=== PATIENT | female | born 1995 | race Caucasian/White ===

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

== ENCOUNTER 2017-06-09 11:10 | Emergency (ER) | payer OTHER ==
[~2017-06-09] VITALS: Ht 157.5 cm; Wt 60.5 kg
[~2017-06-09 11:10] MED LIST: AZITTAB PO; FLUT0.15
[2017-06-09 11:14] VITALS: TEMP 36.7; Ht 157.5 cm; Wt 60.5 kg
[2017-06-09] MEDS ORDERED: RANITIDINE HCL 50 MG/100 ML D5W IV STA (11:28)
[2017-06-09] MEDS ORDERED: DiphenhydrAMINE HCL 50 MG/ML VIAL IV STA (11:28)
[2017-06-09] MEDS ORDERED: METHYLPREDNISOLONE 125 MG VIAL IM STA (11:28)
[2017-06-09 11:47] LABS: BASO % 0.2 %; BASO ABS # 0.01 K/uL (0-0.2); EOS % 4.8 %; EOS ABS # 0.23 K/uL (0-0.5); HEMATOCRIT 40.3 % (37-47); HEMOGLOBIN 13.7 g/dL (12.0-16.0); IG# 0.01 K/uL (0.00-0.02); LYMPH % 32.6 %; LYMPH ABS # 1.56 K/uL (1.2-3.4); MEAN CELL VOLUME 90.8 fL (80-100); MEAN CORPUSCULAR HEMOGLOBIN 30.9 pg (25-34); MEAN PLATELET VOLUME 9.8 fL (7.4-10.4); MONO % 7.7 %; MONO ABS # 0.37 K/uL (0.11-0.59); NEUT % 54.5 %; NEUT ABS # 2.61 K/uL (1.4-6.5); PLATELET COUNT 249 K/uL (130-400); RED CELL DISTRIBUTION WIDTH CV 12.6 % (11.5-14.5); RED CELL DISTRIBUTION WIDTH SD 41.8 fL (36.4-46.3); WHITE BLOOD COUNT 4.79 K/uL (4.8-10.8)
[2017-06-09 12:05] LABS: ALBUMIN 3.5 gm/dl (3.4-5.0); ALT/SGPT 16 U/L (12-78); AST/SGOT 10 U/L (15-37); BLOOD UREA NITROGEN 17 mg/dl (7-18); CALCIUM 9.2 mg/dl (8.5-10.1); CARBON DIOXIDE 26 mmol/L (21-32); GLUCOSE 93 mg/dl (70-99); LIPASE 166 U/L (73-393); SODIUM 142 mmol/L (136-145)
[2017-06-09 12:07] LABS: ALKALINE PHOSPHATASE 68 U/L (45-117); TOTAL PROTEIN 7.9 gm/dl (6.4-8.2)
[2017-06-09] MEDS ORDERED: FAMO20TA11 PO (12:10)
[2017-06-09] MEDS ORDERED: AZIT500T PO (12:27)
[2017-06-09] MEDS ORDERED: METH4PAK PO (12:27)
--- NOTE | 2017-06-09 12:28 | EMERGENCY ROOM VISIT NOTE ---
History First contact with patient: 11:15 Chief Complaint: RASH Stated Complaint: RASH/SORE THROAT History of Present Illness The patient is a 21 year old female who presents to the Emergency Room with complaints of rash over most of her body. The patient states that she started on Saturday with a sore throat and a rash on her hands and forearms. She then had a fever Saturday night so she went to [facility] on . She states that her rapid strep was negative but never heard about the culture. She also states that her mono was negative. They told her she had tonsillitis with tonsillar stones and placed her on Keflex. They also placed her on Benadryl and Pepcid for the rash. The patient states that there is a strong family history of allergies to penicillin, therefore the patient states that her mother never allowed physicians to give her penicillin. The patient denies any other symptoms of head congestion, cough. She states the sore throat is better and the fever has resolved. The patient states that the rash is itchy. She states it is now on her entire back chest abdomen upper arms and neck. She states the rash on her forearms has cleared. She still has a slight rash on her right hand. Review of Systems 10 system review was performed and was negative unless stated otherwise history of present illness. Past Medical/Surgical History Medical Problems: (1) GERD (gastroesophageal reflux disease) Surgical Problems: (1) No history of previous surgery Family History FH: cancer FH: diabetes mellitus FH: heart disease Social History Smoking Status: Never Smoker Alcohol Use: occasionally Marital Status: single Housing Status: lives with roommate Occupation Status: [employer] student Current/Historical Medications Scheduled Famotidine (Pepcid), 20 MG PO DAILY Physical Exam Vital Signs Date Time Temp Pulse Resp B/P (MAP) Pulse Ox O2 Delivery O2 Flow Rate FiO2 18 11:14 36.7 86 18 119/78 100 Room Air Physical Exam PHYSICAL EXAM: Vital Signs were reviewed: Reviewed Nurse's notes and agree. GENERAL: 22-year-old male appears in no acute distress. MENTAL STATUS: Alert, oriented, coherent. EARS: Canals clear. TMs good light reflex, no erythema or fluid level noted. NOSE: Nasal mucosa with minimal erythema engorgement. PHARYNX : No erythema, no edema noted. No exudate noted. Airway is adequate. NECK: Supple, non-tender. No lymphadenopathy noted. LUNGS: Clear to auscultation without wheezes rales or rhonchi. CARDIAC: Regular rate and rhythm without murmur. SKIN: Patient has a confluent erythematous macular/papular rash over her entire back, chest, abdomen, neck and upper arms. Medical Decision & Procedures Laboratory Results 06/09/17 11:35 Red Blood Count 4.44, Mean Corpuscular Volume 90.8, Mean Corpuscular Hemoglobin 30.9, Mean Corpuscular Hemoglobin Concent 34.0, Mean Platelet Volume 9.8, Neutrophils (%) (Auto) 54.5, Lymphocytes (%) (Auto) 32.6, Monocytes (%) (Auto) 7.7, Eosinophils (%) (Auto) 4.8, Basophils (%) (Auto) 0.2, Neutrophils # (Auto) 2.61, Lymphocytes # (Auto) 1.56, Monocytes # (Auto) 0.37, Eosinophils # (Auto) 0.23, Basophils # (Auto) 0.01 06/09/17 11:35 Test 06/09/17 11:35 White Blood Count 4.79 K/uL (4.8-10.8) Red Blood Count 4.44 M/uL (4.2-5.4) Hemoglobin 13.7 g/dL (12.0-16.0) Hematocrit 40.3 % (37-47) Mean Corpuscular Volume 90.8 fL (80-100) Mean Corpuscular Hemoglobin 30.9 pg (25-34) Mean Corpuscular Hemoglobin Concent 34.0 g/dl (32-36) Platelet Count 249 K/uL (130-400) Mean Platelet Volume 9.8 fL (7.4-10.4) Neutrophils (%) (Auto) 54.5 % Lymphocytes (%) (Auto) 32.6 % Monocytes (%) (Auto) 7.7 % Eosinophils (%) (Auto) 4.8 % Basophils (%) (Auto) 0.2 % Neutrophils # (Auto) 2.61 K/uL (1.4-6.5) Lymphocytes # (Auto) 1.56 K/uL (1.2-3.4) Monocytes # (Auto) 0.37 K/uL (0.11-0.59) Eosinophils # (Auto) 0.23 K/uL (0-0.5) Basophils # (Auto) 0.01 K/uL (0-0.2) RDW Standard Deviation 41.8 fL (36.4-46.3) RDW Coefficient of Variation 12.6 % (11.5-14.5) Immature Granulocyte % (Auto) 0.2 % Immature Granulocyte # (Auto) 0.01 K/uL (0.00-0.02) Anion Gap 5.0 mmol/L (3-11) Est Creatinine Clear Calc Drug Dose 96.9 ml/min Estimated GFR () 123.9 Estimated GFR (Non- 106.9 BUN/Creatinine Ratio 21.5 (10-20) Calcium Level 9.2 mg/dl (8.5-10.1) Total Bilirubin 0.3 mg/dl (0.2-1) Direct Bilirubin < 0.1 mg/dl (0-0.2) Aspartate Amino Transf (AST/SGOT) 10 U/L (15-37) Alanine Aminotransferase (ALT/SGPT) 16 U/L (12-78) Alkaline Phosphatase 68 U/L (45-117) Total Protein 7.9 gm/dl (6.4-8.2) Albumin 3.5 gm/dl (3.4-5.0) Lipase 166 U/L (73-393) Medications Administered Medications (Trade) Dose Ordered Sig/Jagdish Route Start Time Stop Time Status Last Admin Dose Admin Methylprednisolone Sodium Succinate (Solu-Medrol IV) 125 mg NOW STAT IM 06/09/17 11:28 06/09/17 11:30 DC 06/09/17 12:03 125 MG Diphenhydramine HCl (Benadryl Inj) 25 mg NOW STAT IV 06/09/17 11:28 06/09/17 11:30 DC 06/09/17 11:45 25 MG Ranitidine HCl (zANTac IV) 50 mg NOW STAT IV 06/09/17 11:28 06/09/17 11:30 DC 06/09/17 11:46 50 MG ED Course The patient was evaluated. IV access was obtained. CBC differential, renal profile, LFTs and lipase levels were ordered. The patient was given Zantac 50 mg IV, Solu-Medrol 125 mg IV and Benadryl 25 mg IV. Labs are reviewed and were unremarkable. Patient's white count was normal. I discussed with the patient that the fact that she had a rash just on her forearms and hands prior to taking the Keflex I cannot definitely say that this is an allergic reaction. This possibly could be a strep rash or a viral exanthem. The patient verbalized understanding. I will treat her for all possibilities. The patient is in agreement and was discharged home in stable condition. Medical Decision Differential diagnosis include allergic exanthem, viral rash, strep rash. Due to the patient having the a rash prior to starting the Keflex I cannot definitely say that this is an allergic reaction. Impression Primary Impression: Rash Departure Information Dispostion Home / Self-Care Condition GOOD Prescriptions Azithromycin (ZITHROMAX) 500 Mg Tab 500 MG PO DAILY for 5 Days, #5 TABS Prov: Yashira Nieto PA-C 06/09/17 Methylprednisolone (MEDROL DOSEPAK) 4 Mg Carroll 0 PO DAILY, #1 PKT Prov: Yashira Nieto PA-C 06/09/17 Referrals [facility] (PCP) Forms HOME CARE DOCUMENTATION FORM, IMPORTANT VISIT INFORMATION, WORK / SCHOOL INSTRUCTIONS Patient Instructions My [facility] Additional Instructions Discontinue Keflex. Start Zithromax tomorrow and take as prescribed. Take Medrol Dosepak as prescribed. [facility] the [facility]. Also recommend [id number] Benadryl 25-50 mg every 6 hours until rash resolves. I would not take any Keflex in the future since this possibly could be an allergic reaction. We are covering you for allergic reaction, viral etiology as well as strep etiology. If symptoms persist or worsen, follow-up with [facility] or return to ER.
[2017-06-09 12:42] VITALS: BP 115/61; PULSE 71; O2SAT 95
== END 2017-06-09 12:43 | disposition home or self-care (01) ==
LOC: C.EDB 11:12 → C.EDA 12:43
DX: R21 Rash and other nonspecific skin eruption (principal); J03.90 Acute tonsillitis, unspecified; J35.8 Other chronic diseases of tonsils and adenoids; Z83.3 Family history of diabetes mellitus; Z82.49 Family history of ischemic heart disease and other diseases of the circulatory system; Z84.89 Family history of other specified conditions